=== PATIENT | female | born 1990 | race African-American/Black ===

== ENCOUNTER 2022-11-05 16:53 | Emergency (ER) | payer SELFPAY ==
[~2022-11-05] VITALS: Ht 167.6 cm; Wt 67.1 kg
[2022-11-05 19:19] LABS: ALANINE AMINOTRANSFERASE 39 U/L (12-78); ALBUMIN 3.3 g/dL (3.4-5.0); ALCOHOL, BLOOD < 3 mg/dL (0-0); ALKALINE PHOSPHATASE 125 U/L (46-116); ASPARTATE AMINOTRANSFERASE 24 U/L (15-37); BILIRUBIN,DIRECT 0.1 mg/dL (0.0-0.2); BILIRUBIN,TOTAL 0.3 mg/dL (0.2-1.0); CALCIUM, SERUM 8.9 mg/dL (8.5-10.1); CARBON DIOXIDE 28 mmol/L (21-32); CHLORIDE 106 mmol/L (98-107); CREATININE 0.9 mg/dL (0.6-1.3); GLUCOSE 83 mg/dL (74-106); POTASSIUM 3.9 mmol/L (3.5-5.1); SODIUM SERUM 140 mmol/L (136-145); TOTAL PROTEIN, SERUM 6.6 g/dL (6.4-8.2); UREA NITROGEN, BLOOD 22 mg/dL (7-18)
[2022-11-05 19:27] LABS: ACETAMINOPHEN 0 ug/ml (10-30)
[2022-11-05 19:55] LABS: BASOPHILS % (AUTO) 0.2 % (0.0-2.0); EOSINOPHILS % (AUTO) 3.1 % (0.0-6.0); HEMATOCRIT 35 % (33-45); HEMOGLOBIN 11.3 g/dL (11.5-14.8); LYMPHOCYTES # (AUTO) 1.3 K/uL (0.8-4.8); LYMPHOCYTES % (AUTO) 19.2 % (20.0-44.0); MEAN CORPUSCULAR HGB CONC 32 g/dl (31.0-36.0); MEAN CORPUSCULAR VOLUME 81 fL (82-100); MONOCYTES # (AUTO) 0.9 K/uL (0.1-1.30); MONOCYTES % (AUTO) 12.3 % (2.0-12.0); NEUTROPHILS # (AUTO) 4.5 K/uL (1.8-8.9); NEUTROPHILS % (AUTO) 65.2 % (43.0-81.0); PLATELET COUNT (AUTO) 366 K/uL (150-450); RED BLOOD CELL COUNT(AUTO) 4.34 MIL/uL (4.0-5.2)
--- NOTE | 2022-11-05 20:15 | NUR ---
COVID SWAB COLLECTED
--- NOTE | 2022-11-06 03:38 | NUR ---
PT AMBULATED TO BATHROOM, STEADY GAIT NOTED
--- NOTE | 2022-11-06 05:32 | NUR ---
PT IS RESTING COMFORTABLY IN BED, RR EVEN AND NON LABORED. PT DENIES ANY DISCOMFORT AT THIS TIME. DENIES ANY SI OR HI. FOOD AND DRINK PROVIDED.
--- NOTE | 2022-11-06 05:49 | NUR ---
Patient discharged to home in stable condition. Written and verbal after care instructions given. Patient verbalizes understanding of instruction.
[2022-11-06 06:37] VITALS: BP 131/86
== END 2022-11-06 06:37 | disposition home or self-care (01) ==
LOC: ER 17:24
DX: F23 Brief psychotic disorder (principal); R45.1 Restlessness and agitation; F19.10 Other psychoactive substance abuse, uncomplicated; R41.82 Altered mental status, unspecified; Z20.822 Contact with and (suspected) exposure to COVID-19
CPT/HCPCS: 99284; 70450; 85025; 80048; 80076; 36415; 84702; 87426; 80143; 80320; C9803; G0480